=== PATIENT | female | born 1985 ===

== ENCOUNTER 2017-09-06 13:03 | Emergency (ER) | payer MEDICAID ==
[2017-09-06 13:03] VITALS: BMI 28.5
[2017-09-06 13:23] VITALS: TEMP 98; O2SAT 100
--- NOTE | 2017-09-06 13:47 | ED PDOC ---
HPI: Abdomen Time Seen by Provider: 09/06/17 13:41 Chief Complaint (Nursing): Abdominal Pain Chief Complaint (Provider): Abdominal Pain History Per: Patient History/Exam Limitations: no limitations Onset/Duration Of Symptoms: Days (x4), Intermittent Episodes Outside of [place] travel?: No Quality Of Discomfort: Sharp Associated Symptoms: denies: Fever, Chills, Nausea, Vomiting, Diarrhea, Urinary Symptoms Additional Complaint(s): 31 year old female with a past medical history of urinary tract infections ( last UTI 2 years ago) presents to the emergency department complaining of sharp , intermittent lower abdominal pain which radiates to the her lower back x4 days. Patient reports that this pain began just after she ended her period. She further states that she was unable to schedule an appointment with her OBGYN until the September 21, prompting her ED visit. Associated symptoms: urinary frequency. Denies fever, chills, flank pain, nausea, vomiting, diarrhea, rash, dysuria, recent travel, chest pain, SOB, vaginal discharge. Also denies concern for STD as she states that she is sexual active with 1 male partner. PMD: Magui Damian Abnormal Vaginal Bleeding: No Last Menstral Period: 09/03/2017 Past Medical History Reviewed: Historical Data, Nursing Documentation, Vital Signs Vital Signs: Last Vital Signs Temp 98.0 F 09/06/17 13:20 Pulse 77 09/06/17 15:41 Resp 16 09/06/17 15:41 BP 98/66 L 09/06/17 15:41 Pulse Ox 100 09/06/17 15:41 - Surgical History Surgical History: Hernia Repair, (x3) - Family History Family History: States: No Known Family Hx - Living Arrangements Living Arrangements: With Family - Social History Current smoker - smoking cessation education provided: No Alcohol: None Drugs: Denies - Home Medications Home Medications: Ambulatory Orders Medication Instructions Recorded oxyCODONE/Acetaminophen [Percocet 1 tab PO Q4 PRN #30 tab 02/09/16 5/325 mg Tab] Naproxen 500 mg PO BID #20 tab 09/06/17 Nitrofurantoin Macrocrystals 100 mg PO BID #14 cap 09/06/17 [Macrobid] - Allergies Allergies/Adverse Reactions: Allergies Allergy/AdvReac Type Severity Reaction Status Date / Time No Known Allergies Allergy Verified 02/27/14 21:51 Review of Systems Gastrointestinal: Positive for: Abdominal Pain (lower). Negative for: Nausea, Vomiting, Diarrhea Genitourinary Female: Negative for: Dysuria, Hematuria, Vaginal Discharge Musculoskeletal: Positive for: Back Pain Physical Exam - Reviewed Nursing Documentation Reviewed: Yes Vital Signs Reviewed: Yes - Physical Exam Comments: GENERAL APPEARANCE: Patient is awake, alert, oriented x 3, in no acute distress , resting comfortably. SKIN: Warm, dry; (-) cyanosis. EYES: (-) conjunctival pallor. ENMT: Mucous membranes moist. Airway patent: (-) stridor. NECK: Supple, FROM CHEST AND RESPIRATORY: (-) wheezing; (-) rales, (-) rhonchi, (-) rub; breath sounds equal bilaterally. Speaking in full sentences, respirations even and nonlabored HEART AND CARDIOVASCULAR: (-) irregularity; (-) murmur, (-) gallop. ABDOMEN AND GI: Soft; (-) tenderness. (+) suprapubic discomfort. (-) CVA tenderness (-) distention (-) guarding. EXTREMITIES: (-) deformity, (-) edema. NEURO AND PSYCH: Mental status as above; (-) focal findings. Gait steady, speech clear. (-) facial asymmetry (-) aphasia - Laboratory Results Urine POC: Negative Urine dip results: Positive for: Leukocyte Esterase (trace), Blood (trace). Negative for: Nitrate, Ketones, Glucose, Bilirubin - ECG O2 Sat by Pulse Oximetry: 100 (RA) Pulse Ox Interpretation: Normal Medical Decision Making Medical Decision Makin Initial Impression 31 year old female presenting with abdominal pain probable UTI Initial Plan: * Upreg * Udip * Naproxen 500mg PO * Urine Culture * Urinalysis * Reevaluation Upreg: Negative Urinalysis (+) blood, likely early cystitis. Macrobid 100mg PO ordered. Urine culture pending. On re-evaluation, patient reports improvement of symptoms. On exam, patient remains AAOx3, in no acute distress. Lungs clear to auscultation, cardiac RRR, abdomen soft, non-tender, repeat neuro exam shows no focal findings. VSS, stable for discharge. Lab/Diagnostic results d/w the patient in great detail. Diagnosis of abdominal pain, hematuria, probable UTI d/w the patient. Based on history, exam and diagnostic results, plan will be for outpatient follow up with [facility] as planned. Patient instructed to follow-up with pmd / referral provided / the clinic in 1- 2 days without fail. Advised to take medication as prescribed. Return to the emergency room at any time for any new or worsening symptoms. Patient states she fully agrees with and understands discharge instructions. States that she agrees with the plan and disposition. Verbalized and repeated discharge instructions and plan. I have given the patient opportunity to ask any additional questions. Documented by Omayra Galeano acting as a scribe for Regi Colón PA-C. All medical record entries made by the Scribe were at my direction and personally dictated by me. I have reviewed the chart and agree that the record accurately reflects my personal performance of the history, physical exam, medical decision making, and the department course for this patient. I have also personally directed, reviewed, and agree with the discharge instructions and disposition. Disposition - Clinical Impression Clinical Impression: Abdominal pain, UTI (urinary tract infection) - Patient ED Disposition Is Patient to be Admitted: No Counseled Patient/Family Regarding: Studies Performed, Diagnosis, Need For Followup, Rx Given - Disposition Referrals: Non [facility] Provider, [Primary Care Provider] - Disposition: Routine/Home Disposition Time: 15:26 Condition: STABLE Additional Instructions: FOLLOW UP WITH [facility] PLANNED RETURN TO ED WITH ANY NEW OR WORSENING SYMPTOMS. Prescriptions: Naproxen 500 mg PO BID #20 tab Nitrofurantoin Macrocrystals [Macrobid] 100 mg PO BID #14 cap Instructions: Urinary Tract Infections in Adults, Low Back Pain in Adults, Acute Abdomen (Belly Pain), Adult (DC) Forms: [employer] ([place] Islander) Print Language: ICELANDIC - POA Present On Arrival: None Results - Lab Results Lab Results: 09/06/17 13:53 Urine Color Straw Urine Clarity Clear Urine pH 7.0 Ur Specific Dillon 1.008 Urine Protein Negative Urine Glucose (UA) Neg Urine Ketones Negative Urine Blood Small Urine Nitrate Negative Urine Bilirubin Negative Urine Urobilinogen 0.2-1.0 Ur Leukocyte Esterase Neg Urine RBC (Auto) 5 H Urine Microscopic WBC 1 Ur Squamous Epith Cells 1 Urine Bacteria Rare
[2017-09-06] MEDS ORDERED: Naproxen 500 MG TAB PO STA (13:53)
[2017-09-06] MEDS ORDERED: Naproxen 500 MG TAB PO ONE (14:02)
[2017-09-06 14:15] LABS: SQUAMOUS EPITHIAL 1 /hpf (0-5); URINE BACTERIA RARE (<OCC); URINE BILIRUBIN NEGATIVE (NEGATIVE); URINE BLOOD SMALL (NEGATIVE); URINE CLARITY CLEAR (Clear); URINE COLOR STRAW (YELLOW); URINE GLUCOSE (UA) NEG (Normal); URINE LEUKOCYTE ESTERASE NEG Leu/uL (Negative); URINE PROTEIN NEGATIVE (NEGATIVE); URINE UROBILINOGEN 0.2-1.0 mg/dL (0.2-1.0)
[2017-09-06 15:42] VITALS: BP 98/66; PULSE 77; RESP 16
== END 2017-09-06 15:46 | disposition home or self-care (01) ==
LOC: SUPCPDRO 13:03 → H.ER 13:03
DX: N39.0 Urinary tract infection, site not specified (principal)

== ENCOUNTER 2018-07-12 11:46 | Emergency (ER) | payer MEDICAID, OTHER ==
[2018-07-12 12:07] VITALS: BMI 26.6
[2018-07-12] MEDS ORDERED: Lactated Ringer's 1,000 ML IV ONE (12:09)
[2018-07-12 12:58] LABS: BASO % 0.4 % (0.0-2.0); EOS # 0.1 K/uL (0.0-0.7); EOS % 0.7 % (0.0-4.0); HEMOGLOBIN 10.1 g/dL (12.0-16.0); LYMPH # 1.3 K/uL (1.0-4.3); LYMPH % 11.5 % (20.0-40.0); MEAN CELL VOLUME 87.1 fl (81.0-99.0); MEAN CORPUSCULAR HEMOGLOBIN 28.3 pg (27.0-31.0); MEAN CORPUSCULAR HGB CONC 32.5 g/dL (33.0-37.0); MEAN PLATELET VOLUME 7.8 fl (7.2-11.7); MONO # 0.8 K/uL (0.0-0.8); MONO % 6.6 % (0.0-10.0); NEUT # 9.3 K/uL (1.8-7.0); NEUT % 80.8 % (50.0-75.0); RBC 3.57 Mil/uL (3.80-5.20); RED CELL DISTRIBUTION WIDTH 13.6 % (11.5-14.5); WHITE BLOOD COUNT 11.5 K/uL (4.8-10.8)
[2018-07-12 19:34] VITALS: BP 98/51; PULSE 110; TEMP 98; O2SAT 100
== END 2018-07-12 15:32 | disposition home or self-care (01) ==
LOC: H.EROB2 11:46
DX: O26.93 Pregnancy related conditions, unspecified, third trimester (principal); R55 Syncope and collapse; Z3A.28 28 weeks gestation of pregnancy
CPT/HCPCS: 82947; 82948; 83036; 85025; 96360; 99283; J7120

== ENCOUNTER 2018-08-24 20:32 | Emergency (ER) | payer OTHER ==
[2018-08-24 21:06] VITALS: BMI 28.5
[2018-08-24] MEDS: Lactated Ringer's 1,000 ML IV SCH (21:45)
[2018-08-24 22:33] LABS: SQUAMOUS EPITHIAL 1 /hpf (0-5); URINE BACTERIA MOD (<OCC); URINE BILIRUBIN NEGATIVE (NEGATIVE); URINE CLARITY SLIGHTY-CLOUDY (Clear); URINE COLOR YELLOW (YELLOW); URINE GLUCOSE (UA) NEG (NEGATIVE); URINE LEUKOCYTE ESTERASE LARGE Leu/uL (Negative); URINE PROTEIN NEGATIVE (NEGATIVE); URINE UROBILINOGEN 0.2-1.0 mg/dL (0.2-1.0)
[2018-08-24 22:35] LABS: URINE BLOOD NEGATIVE (NEGATIVE)
--- NOTE | 2018-08-25 09:07 | OBHP ---
Datetime: 08/24/2018 22:19 IP Admit Plan: Observation/Evaluation; Discharge home Admit Comment, IP Provider: 32 y/o , 34.6 weeks based on LMP presents to [facility] with lower abdo rohan pressure and dysuria started 2 days ago. Also reports frequency. Occaisonal CTx and back pain. Denies LOF or VB. Good movements. Denies fever, chills, N/V/D. care: Dr. Mckeon. 1 episode of UTI in 1st trimester. Denies any other complications so f ar in the PMHx: Denies PSHx: C section x 3 Allergies: NKDA Social Hx: Denies smoking, drugs, alcohol F/H: Denies PE: Gen: NAD Chest: RRR, S1S2 present Lungs: CTAB ABdomen: Gravid, NT, BS+ Ext: No pedal edema SVE: close(DOne by Lauren RN) A/P: 32 y/o , 34.6 weeks based on LMP presents to [facility] with lower abdominal pressure and dy suria - UA done consistent with UTI, Large Leuks estrace and Moderate bacteria - LR 1L bolus - EFM and toco as above - PTL labor precautions given - F/U with Dr. Mckeon as scheduled. Patient verblized understanding. Case discussed with Dr. Nahomi Bird, PGY1 Pelvic Type - PN: Not Done Extremities - PN: Normal Abdomen - PN: Normal Back - PN: Normal Breast - PN: Not Done Lungs - PN: Normal Heart - PN: Normal Thyroid - PN: Not Done Neurologic - PN: Not Done HEENT - PN: Normal General - PN: Normal FHR - Baseline A Provider: 140 Membranes, Provider: Intact Contraction Comments Provider: NOne EGA AdmitDate IP: 34.6 Vital Signs Provider: Reviewed IP Chief Complaint: Maternal discomfort NICHD Variability Prov Fetus A: Moderate 6-25bpm NICHD Accel Fetus A IP Provider: [id number] FHR Category Provider Fetus A: Category I Dilatation, Provider: 0 Genitourinary Exam: Normal DTRs - PN: Not Done Datetime: 07/12/2018 14:00 IP Adm Impression: , intrauterine IP Chief Complaint Other: Syncope Gestation - Est Wks by US: 28.5 NICHD Decel Fetus A IP Provider: None
== END 2018-08-24 22:55 | disposition home or self-care (01) ==
LOC: H.EROB2 20:32
DX: O26.93 Pregnancy related conditions, unspecified, third trimester (principal); R10.2 Pelvic and perineal pain; R30.0 Dysuria; O23.43 Unspecified infection of urinary tract in pregnancy, third trimester; Z3A.34 34 weeks gestation of pregnancy
CPT/HCPCS: 81003; 99283; J7120